=== PATIENT | female | born 1970 | race Caucasian/White ===

== ENCOUNTER → 2022-07-22 | Outpatient (CLI) | payer BC ==
[~2022-07-22] MED LIST: EUTHYROX150 MCG PO
[2022-07-22 19:44] LABS: Osmolality, Urine 230 mos/kg (15-1400); Sodium, Urine, Random 54 mmol/L (20-110)
== END | disposition home or self-care (01) ==
LOC: LAB SHORT 18:50 → LAB 18:50
PROVIDERS: Nurse Practitioner Family
DX: E87.1 Hypo-osmolality and hyponatremia (principal)
CPT/HCPCS: 83935; 84300